=== PATIENT | female | born 1955 | race Caucasian/White ===

== ENCOUNTER 2025-07-15 11:40 | Inpatient (IN) ==
[2025-07-15] MEDS ORDERED: IOPAMIDOL 100 ML BOTTLE IV ONE (11:41)
[2025-07-15] MEDS: ONDANSETRON 4 MG/2 ML VIAL IV ONE (12:25)
[2025-07-15 12:26] LABS: Basophils # (Auto) 0.01 K/mcL (0.00-0.30); Basophils % (Auto) 0.1 % (0.0-2.0); Eosinophils # (Auto) 0 K/mcL (0.00-0.70); Eosinophils % (Auto) 0 % (0.0-7.0); Hematocrit 44.2 % (34.1-44.9); Hemoglobin 15.1 g/dL (11.2-15.7); Lymphocytes # (Auto) 1.71 K/mcL (1.50-4.80); Lymphocytes % (Auto) 12.2 % (15.5-49.0); Mean Corpuscular HGB Conc 34.2 g/dL (31.0-36.0); Monocytes # (Auto) 0.81 K/mcL (0.10-0.90); Monocytes % (Auto) 5.8 % (1.0-12.0); Neutrophils % (Auto) 81.6 % (38.0-78.0); Platelet Count 332 K/mcL (140-440); RBC 4.35 M/mcL (3.59-5.38); WBC 14.0 K/mcL (4.5-11.0)
[2025-07-15 12:53] LABS: ALT/SGPT 10 U/L (<40); AST/SGOT 13 U/L (<32); Albumin 4.1 gm/dL (3.2-5.2); Albumin/Globulin Ratio 1.0 (1.0-2.3); Alkaline Phosphatase 51 U/L (39-117); Anion Gap 17.0 (8.0-16.0); Bilirubin,Total 1.2 mg/dL (0.1-1.0); Blood Urea Nitrogen 31 mg/dL (8-23); Calcium 12.1 mg/dL (8.6-10.4); Carbon Dioxide 26 mmol/L (22-30); Chloride 89 mmol/L (96-108); Globulin 4.3 gm/dL (2.2-3.7); Glucose 149 mg/dL (70-105); Potassium 3.4 mmol/L (3.3-5.1); Sodium 132 mmol/L (133-145)
[2025-07-15] MEDS: 0.9 % SODIUM CHLORIDE 1,000 ML IV ONE (13:32)
[2025-07-15] MEDS: PIPERACILLIN SODIUM/TAZOBACTAM 3.375 GM in DEXTROSE 5% IN WATER 50 ML IV ONE (14:42)
[2025-07-15] MEDS: ACETAMINOPHEN 1,000 MG/100 ML BAG IV SCH (16:41)
[2025-07-15] MEDS: HYDROmorphone 0.5 MG/0.5 ML SYRINGE IV PRN (18:03)
[2025-07-15] MEDS: METOCLOPRAMIDE 10 MG/2 ML VIAL IV SCH (18:04)
[2025-07-15] MEDS: 0.9 % SODIUM CHLORIDE 1,000 ML IV SCH (20:12)
[2025-07-15] MEDS: 0.9 % SODIUM CHLORIDE 500 ML IV ONE (20:15)
[2025-07-17] MEDS: ONDANSETRON 4 MG/2 ML VIAL IV PRN (14:09)
[2025-07-18 08:23] LABS: ALT/SGPT 13 U/L (<40); AST/SGOT 17 U/L (<32); Albumin 3.1 gm/dL (3.2-5.2); Albumin/Globulin Ratio 1.0 (1.0-2.3); Alkaline Phosphatase 70 U/L (39-117); Anion Gap 15.0 (8.0-16.0); Bilirubin,Direct 0.7 mg/dL (<0.3); Bilirubin,Total 0.9 mg/dL (0.1-1.0); Blood Urea Nitrogen 12 mg/dL (8-23); Calcium 8.8 mg/dL (8.6-10.4); Carbon Dioxide 21 mmol/L (22-30); Chloride 99 mmol/L (96-108); Globulin 3.2 gm/dL (2.2-3.7); Glucose 88 mg/dL (70-105); Phosphorous 1.7 mg/dL (2.5-4.5); Potassium 2.9 mmol/L (3.3-5.1); Sodium 135 mmol/L (133-145); Triglycerides 144 mg/dL (<150); Uric Acid 7.7 mg/dL (2.5-8.0)
[2025-07-18] MEDS: PIPERACILLIN SODIUM/TAZOBACTAM 4.5 GM in DEXTROSE 5% IN WATER 50 ML IV ONE (09:02)
[2025-07-18] MEDS: PANTOPRAZOLE 40 MG VIAL IV SCH (09:04)
[2025-07-18 09:13] LABS: Basophils # (Auto) 0.03 K/mcL (0.00-0.30); Basophils % (Auto) 0.2 % (0.0-2.0); Eosinophils # (Auto) 0.05 K/mcL (0.00-0.70); Eosinophils % (Auto) 0.3 % (0.0-7.0); Hematocrit 34.3 % (34.1-44.9); Hemoglobin 11.6 g/dL (11.2-15.7); Lymphocytes # (Auto) 1.41 K/mcL (1.50-4.80); Lymphocytes % (Auto) 9.0 % (15.5-49.0); Mean Corpuscular HGB Conc 33.8 g/dL (31.0-36.0); Monocytes # (Auto) 1.10 K/mcL (0.10-0.90); Monocytes % (Auto) 7.0 % (1.0-12.0); Neutrophils % (Auto) 81.8 % (38.0-78.0); Platelet Count 336 K/mcL (140-440); RBC 3.37 M/mcL (3.59-5.38); WBC 15.8 K/mcL (4.5-11.0)
[2025-07-18] MEDS: POTASSIUM PHOSPHATE IV ONE (09:41)
[2025-07-18] MEDS: DEXTROSE 5% IV ONE (09:41)
[2025-07-18] MEDS: WATER IV ONE (09:41)
[2025-07-18] MEDS: PIPERACILLIN SODIUM/TAZOBACTAM 4.5 GM in DEXTROSE 5% IN WATER 100 ML IV SCH (12:52)
[2025-07-18] MEDS: POLYETHYLENE GLYCOL 3350 17 GM PACKET PO SCH (15:34)
[2025-07-18] MEDS: PYRIDOSTIGMINE BROMIDE 10 MG/2 ML AMPUL IV SCH (15:34)
[2025-07-18] MEDS: MAGNESIUM SULFATE 4 GM/100 ML BAG IV ONE (16:26)
[2025-07-18 18:32] LABS: INR 1.1 (0.9-1.1); Prothrombin Time 15.0 sec (11.9-14.5)
[2025-07-19 06:39] LABS: Basophils # (Auto) 0.02 K/mcL (0.00-0.30); Basophils % (Auto) 0.1 % (0.0-2.0); Eosinophils # (Auto) 0.10 K/mcL (0.00-0.70); Eosinophils % (Auto) 0.7 % (0.0-7.0); Hematocrit 32.7 % (34.1-44.9); Hemoglobin 11.2 g/dL (11.2-15.7); Lymphocytes # (Auto) 1.46 K/mcL (1.50-4.80); Lymphocytes % (Auto) 9.7 % (15.5-49.0); Mean Corpuscular HGB Conc 34.3 g/dL (31.0-36.0); Monocytes # (Auto) 1.02 K/mcL (0.10-0.90); Monocytes % (Auto) 6.8 % (1.0-12.0); Neutrophils % (Auto) 78.8 % (38.0-78.0); Platelet Count 378 K/mcL (140-440); RBC 3.25 M/mcL (3.59-5.38); WBC 15.0 K/mcL (4.5-11.0)
[2025-07-19 07:17] LABS: ALT/SGPT 13 U/L (<40); AST/SGOT 16 U/L (<32); Albumin 3.0 gm/dL (3.2-5.2); Albumin/Globulin Ratio 1.0 (1.0-2.3); Alkaline Phosphatase 76 U/L (39-117); Anion Gap 13.0 (8.0-16.0); Bilirubin,Direct 0.6 mg/dL (<0.3); Bilirubin,Total 0.9 mg/dL (0.1-1.0); Blood Urea Nitrogen 8 mg/dL (8-23); Calcium 8.4 mg/dL (8.6-10.4); Carbon Dioxide 22 mmol/L (22-30); Chloride 99 mmol/L (96-108); Globulin 3.1 gm/dL (2.2-3.7); Glucose 100 mg/dL (70-105); Phosphorous 1.9 mg/dL (2.5-4.5); Potassium 3.0 mmol/L (3.3-5.1); Sodium 134 mmol/L (133-145); Triglycerides 128 mg/dL (<150); Uric Acid 3.8 mg/dL (2.5-8.0)
[2025-07-19 13:52] LABS: ALT/SGPT 10 U/L (<40); AST/SGOT 15 U/L (<32); Albumin 3.2 gm/dL (3.2-5.2); Albumin/Globulin Ratio 0.9 (1.0-2.3); Alkaline Phosphatase 53 U/L (39-117); Anion Gap 16.1 (8.0-16.0); Bilirubin,Direct 0.4 mg/dL (<0.3); Bilirubin,Total 0.6 mg/dL (0.1-1.0); Blood Urea Nitrogen 22 mg/dL (8-23); Calcium 9.3 mg/dL (8.6-10.4); Carbon Dioxide 21 mmol/L (22-30); Chloride 95 mmol/L (96-108); Globulin 3.5 gm/dL (2.2-3.7); Glucose 97 mg/dL (70-105); Phosphorous 1.4 mg/dL (2.5-4.5); Potassium 3.1 mmol/L (3.3-5.1); Sodium 132 mmol/L (133-145); Triglycerides 184 mg/dL (<150); Uric Acid 7.4 mg/dL (2.5-8.0)
[2025-07-19] MEDS: 0.9 % SODIUM CHLORIDE 1,000 ML IV SCH (16:28)
[2025-07-19] MEDS: POTASSIUM PHOSPHATE 40 MEQ in DEXTROSE 5% IN WATER 500 ML IV SCH (16:45)
[2025-07-20 07:39] LABS: ALT/SGPT 14 U/L (<40); AST/SGOT 18 U/L (<32); Albumin 3.4 gm/dL (3.2-5.2); Albumin/Globulin Ratio 0.9 (1.0-2.3); Alkaline Phosphatase 90 U/L (39-117); Anion Gap 14.0 (8.0-16.0); Bilirubin,Direct 0.7 mg/dL (<0.3); Bilirubin,Total 1.1 mg/dL (0.1-1.0); Blood Urea Nitrogen 6 mg/dL (8-23); Calcium 8.9 mg/dL (8.6-10.4); Carbon Dioxide 24 mmol/L (22-30); Chloride 98 mmol/L (96-108); Globulin 3.6 gm/dL (2.2-3.7); Glucose 126 mg/dL (70-105); Phosphorous 2.7 mg/dL (2.5-4.5); Potassium 3.4 mmol/L (3.3-5.1); Sodium 136 mmol/L (133-145); Triglycerides 135 mg/dL (<150); Uric Acid 3.0 mg/dL (2.5-8.0)
[2025-07-20 08:24] LABS: Basophils # (Auto) 0.03 K/mcL (0.00-0.30); Basophils % (Auto) 0.2 % (0.0-2.0); Eosinophils # (Auto) 0.06 K/mcL (0.00-0.70); Eosinophils % (Auto) 0.3 % (0.0-7.0); Hematocrit 38.0 % (34.1-44.9); Hemoglobin 13.1 g/dL (11.2-15.7); Lymphocytes # (Auto) 1.72 K/mcL (1.50-4.80); Lymphocytes % (Auto) 9.7 % (15.5-49.0); Mean Corpuscular HGB Conc 34.5 g/dL (31.0-36.0); Monocytes # (Auto) 1.11 K/mcL (0.10-0.90); Monocytes % (Auto) 6.3 % (1.0-12.0); Neutrophils % (Auto) 79.3 % (38.0-78.0); Platelet Count 454 K/mcL (140-440); RBC 3.78 M/mcL (3.59-5.38); WBC 17.7 K/mcL (4.5-11.0)
[2025-07-21 06:57] LABS: Basophils # (Auto) 0.02 K/mcL (0.00-0.30); Basophils % (Auto) 0.2 % (0.0-2.0); Eosinophils # (Auto) 0.13 K/mcL (0.00-0.70); Eosinophils % (Auto) 1.0 % (0.0-7.0); Hematocrit 33.4 % (34.1-44.9); Hemoglobin 11.4 g/dL (11.2-15.7); Lymphocytes # (Auto) 1.63 K/mcL (1.50-4.80); Lymphocytes % (Auto) 13.2 % (15.5-49.0); Mean Corpuscular HGB Conc 34.1 g/dL (31.0-36.0); Monocytes # (Auto) 0.81 K/mcL (0.10-0.90); Monocytes % (Auto) 6.5 % (1.0-12.0); Neutrophils % (Auto) 74.0 % (38.0-78.0); Platelet Count 464 K/mcL (140-440); RBC 3.28 M/mcL (3.59-5.38); WBC 12.4 K/mcL (4.5-11.0)
[2025-07-21 07:36] LABS: ALT/SGPT 10 U/L (<40); AST/SGOT 15 U/L (<32); Albumin 3.0 gm/dL (3.2-5.2); Albumin/Globulin Ratio 0.9 (1.0-2.3); Alkaline Phosphatase 81 U/L (39-117); Anion Gap 17.0 (8.0-16.0); Bilirubin,Direct 0.4 mg/dL (<0.3); Bilirubin,Total 0.8 mg/dL (0.1-1.0); Blood Urea Nitrogen 7 mg/dL (8-23); Calcium 8.6 mg/dL (8.6-10.4); Carbon Dioxide 21 mmol/L (22-30); Chloride 99 mmol/L (96-108); Globulin 3.3 gm/dL (2.2-3.7); Glucose 93 mg/dL (70-105); Phosphorous 2.4 mg/dL (2.5-4.5); Potassium 3.0 mmol/L (3.3-5.1); Sodium 137 mmol/L (133-145); Triglycerides 114 mg/dL (<150); Uric Acid 3.2 mg/dL (2.5-8.0)
[2025-07-21] MEDS ORDERED: IOPAMIDOL 100 ML BOTTLE IV ONE (09:37)
[2025-07-21 10:51] LABS: Basophils # (Auto) 0.01 K/mcL (0.00-0.30); Basophils % (Auto) 0.1 % (0.0-2.0); Eosinophils # (Auto) 0.09 K/mcL (0.00-0.70); Eosinophils % (Auto) 0.8 % (0.0-7.0); Hematocrit 36.2 % (34.1-44.9); Hemoglobin 12.0 g/dL (11.2-15.7); Lymphocytes # (Auto) 1.22 K/mcL (1.50-4.80); Lymphocytes % (Auto) 10.5 % (15.5-49.0); Mean Corpuscular HGB Conc 33.1 g/dL (31.0-36.0); Monocytes # (Auto) 0.98 K/mcL (0.10-0.90); Monocytes % (Auto) 8.4 % (1.0-12.0); Neutrophils % (Auto) 79.2 % (38.0-78.0); Platelet Count 315 K/mcL (140-440); RBC 3.45 M/mcL (3.59-5.38); WBC 11.6 K/mcL (4.5-11.0)
[2025-07-21 11:04] LABS: Bacteria,Urine Few /hpf (0); Bilirubin,Urine Negative (Negative); Color,Urine Yellow; Glucose,Urine (UA) Negative (Negative); Ketones,Urine 15(1+) mg/dL (Negative); Leukocyte Esterase,Urine Negative /uL (Negative); PH,Urine 5.0 (5.0-9.0); Protein,Urine 100 mg/dL (Negative); Specific Gravity,Urine 1.020 (1.000-1.035); Urobilinogen,Urine 2.0 mg/dL
[2025-07-21 11:18] LABS: ALT/SGPT 9 U/L (<40); AST/SGOT 12 U/L (<32); Albumin 3.5 gm/dL (3.2-5.2); Albumin/Globulin Ratio 0.6 (1.0-2.3); Alkaline Phosphatase 43 U/L (39-117); Anion Gap 16.5 (8.0-16.0); Bilirubin,Direct 0.5 mg/dL (<0.3); Bilirubin,Total 0.8 mg/dL (0.1-1.0); Blood Urea Nitrogen 35 mg/dL (8-23); Calcium 10.5 mg/dL (8.6-10.4); Carbon Dioxide 25 mmol/L (22-30); Chloride 96 mmol/L (96-108); Globulin 5.6 gm/dL (2.2-3.7); Glucose 103 mg/dL (70-105); Phosphorous 2.8 mg/dL (2.5-4.5); Potassium 3.5 mmol/L (3.3-5.1); Sodium 137 mmol/L (133-145); Triglycerides 152 mg/dL (<150); Uric Acid 7.3 mg/dL (2.5-8.0)
[2025-07-21] MEDS: POTASSIUM PHOSPHATE 40 MEQ in DEXTROSE 5% IN WATER 500 ML IV SCH (12:57)
[2025-07-21 17:44] LABS: Basophils # (Auto) 0.02 K/mcL (0.00-0.30); Basophils % (Auto) 0.2 % (0.0-2.0); Eosinophils # (Auto) 0.04 K/mcL (0.00-0.70); Eosinophils % (Auto) 0.4 % (0.0-7.0); Hematocrit 39.4 % (34.1-44.9); Hemoglobin 13.2 g/dL (11.2-15.7); Lymphocytes # (Auto) 1.13 K/mcL (1.50-4.80); Lymphocytes % (Auto) 10.9 % (15.5-49.0); Mean Corpuscular HGB Conc 33.5 g/dL (31.0-36.0); Monocytes # (Auto) 0.89 K/mcL (0.10-0.90); Monocytes % (Auto) 8.6 % (1.0-12.0); Neutrophils % (Auto) 79.6 % (38.0-78.0); Platelet Count 319 K/mcL (140-440); RBC 3.79 M/mcL (3.59-5.38); WBC 10.4 K/mcL (4.5-11.0)
[2025-07-22 06:42] LABS: Basophils # (Auto) 0.02 K/mcL (0.00-0.30); Basophils % (Auto) 0.2 % (0.0-2.0); Eosinophils # (Auto) 0.21 K/mcL (0.00-0.70); Eosinophils % (Auto) 1.7 % (0.0-7.0); Hematocrit 34.3 % (34.1-44.9); Hemoglobin 11.4 g/dL (11.2-15.7); Lymphocytes # (Auto) 1.77 K/mcL (1.50-4.80); Lymphocytes % (Auto) 14.3 % (15.5-49.0); Mean Corpuscular HGB Conc 33.2 g/dL (31.0-36.0); Monocytes # (Auto) 0.84 K/mcL (0.10-0.90); Monocytes % (Auto) 6.8 % (1.0-12.0); Neutrophils % (Auto) 73.5 % (38.0-78.0); Platelet Count 494 K/mcL (140-440); RBC 3.33 M/mcL (3.59-5.38); WBC 12.4 K/mcL (4.5-11.0)
[2025-07-22 06:56] LABS: ALT/SGPT 10 U/L (<40); AST/SGOT 14 U/L (<32); Albumin 3.0 gm/dL (3.2-5.2); Albumin/Globulin Ratio 0.9 (1.0-2.3); Alkaline Phosphatase 92 U/L (39-117); Anion Gap 15.0 (8.0-16.0); Bilirubin,Direct 0.3 mg/dL (<0.3); Bilirubin,Total 0.6 mg/dL (0.1-1.0); Blood Urea Nitrogen 6 mg/dL (8-23); Calcium 8.4 mg/dL (8.6-10.4); Carbon Dioxide 22 mmol/L (22-30); Chloride 101 mmol/L (96-108); Globulin 3.4 gm/dL (2.2-3.7); Glucose 183 mg/dL (70-105); Phosphorous 2.3 mg/dL (2.5-4.5); Potassium 3.2 mmol/L (3.3-5.1); Sodium 138 mmol/L (133-145); Triglycerides 104 mg/dL (<150); Uric Acid 3.4 mg/dL (2.5-8.0)
[2025-07-22] MEDS ORDERED: BUPIVACAINE LIPOSOMAL 1.3% 10 ML VIAL IJ ONE (09:06)
[2025-07-22] MEDS ORDERED: fentaNYL 100 MCG/2 ML VIAL ONE (09:59)
[2025-07-22] MEDS ORDERED: PROPOFOL 200 MG/20 ML VIAL IV ONE (09:59)
[2025-07-22] MEDS ORDERED: LIDOCAINE 2% PF 5 ML VIAL ONE (10:03)
[2025-07-22] MEDS ORDERED: DEXAMETHASONE 10 MG/ML VIAL ONE (10:03)
[2025-07-22] MEDS ORDERED: GLYCOPYRROLATE 0.2 MG/ML VIAL IV ONE (10:03)
[2025-07-22] MEDS ORDERED: ONDANSETRON 4 MG/2 ML VIAL ONE (10:03)
[2025-07-22] MEDS ORDERED: ROCURONIUM 10 MG/ML ML IV ONE ×2 (10:03→16:22)
[2025-07-22] MEDS ORDERED: MAGNESIUM SULFATE 2 GM/50 ML BAG IV ONE (10:09)
[2025-07-22] MEDS ORDERED: PHENYLephrine 1 MG/10 ML SYRINGE (ANEST) ONE (14:54)
[2025-07-22] MEDS ORDERED: HYDROmorphone 0.5 MG/0.5 ML SYRINGE ONE ×2 (15:12→16:54)
[2025-07-22] MEDS ORDERED: SUGAMMADEX SODIUM 200 MG/2 ML VIAL IV ONE (15:12)
[2025-07-22] MEDS ORDERED: IPRATROPIUM/ALBUTEROL 3 ML AMPUL.NEB NEB PRN (16:12)
[2025-07-22] MEDS ORDERED: ONDANSETRON 4 MG/2 ML VIAL IV PRN (16:12)
[2025-07-22] MEDS ORDERED: BENZOCAINE/MENTHOL 1 LOZENGE PO PRN (16:12)
[2025-07-22] MEDS ORDERED: LACTATED RINGERS 250 ML IV PRN (16:12)
[2025-07-22] MEDS ORDERED: NALOXONE HCL 0.4 MG/ML VIAL IV PRN (16:12)
[2025-07-22] MEDS ORDERED: VASOPRESSIN 20 UNIT/ML VIAL ONE (16:22)
[2025-07-22] MEDS: HYDROmorphone 0.5 MG/0.5 ML SYRINGE IV PRN (17:23)
[2025-07-22] MEDS: fentaNYL 100 MCG/2 ML VIAL IV PRN (17:37)
[2025-07-22] MEDS: METHOCARBAMOL 1,000 MG/10 ML VIAL IV PRN (17:38)
[2025-07-22] MEDS: ACETAMINOPHEN 1,000 MG/100 ML BAG IV ONE (17:55)
[2025-07-22] MEDS: LACTATED RINGERS 1,000 ML IV SCH (18:45)
[2025-07-22] MEDS: POTASSIUM PHOSPHATE 66 MEQ/15 ML VIAL IV ONE (19:46)
[2025-07-22] MEDS: POTASSIUM PHOSPHATE 40 MEQ in DEXTROSE 5% IN WATER 500 ML IV SCH (19:56)
[2025-07-23] MEDS: KETOROLAC 15 MG/ML VIAL IV SCH
[2025-07-23] MEDS: POTASSIUM PHOSPHATE 66 MEQ/15 ML VIAL IV ONE (00:01)
[2025-07-23 06:20] LABS: Basophils # (Auto) 0.01 K/mcL (0.00-0.30); Basophils % (Auto) 0 % (0.0-2.0); Eosinophils # (Auto) 0 K/mcL (0.00-0.70); Eosinophils % (Auto) 0 % (0.0-7.0); Hematocrit 35.6 % (34.1-44.9); Hemoglobin 11.9 g/dL (11.2-15.7); Lymphocytes # (Auto) 1.80 K/mcL (1.50-4.80); Lymphocytes % (Auto) 8.2 % (15.5-49.0); Mean Corpuscular HGB Conc 33.4 g/dL (31.0-36.0); Monocytes # (Auto) 1.00 K/mcL (0.10-0.90); Monocytes % (Auto) 4.6 % (1.0-12.0); Neutrophils % (Auto) 86.0 % (38.0-78.0); Platelet Count 516 K/mcL (140-440); RBC 3.45 M/mcL (3.59-5.38); WBC 22.0 K/mcL (4.5-11.0)
[2025-07-23 06:39] LABS: ALT/SGPT 12 U/L (<40); AST/SGOT 19 U/L (<32); Albumin 2.9 gm/dL (3.2-5.2); Albumin/Globulin Ratio 1.0 (1.0-2.3); Alkaline Phosphatase 80 U/L (39-117); Anion Gap 9.0 (8.0-16.0); Bilirubin,Direct 0.2 mg/dL (<0.3); Bilirubin,Total 0.6 mg/dL (0.1-1.0); Blood Urea Nitrogen 9 mg/dL (8-23); Calcium 7.9 mg/dL (8.6-10.4); Carbon Dioxide 22 mmol/L (22-30); Chloride 101 mmol/L (96-108); Globulin 3.0 gm/dL (2.2-3.7); Glucose 180 mg/dL (70-105); Phosphorous 3.5 mg/dL (2.5-4.5); Potassium 5.0 mmol/L (3.3-5.1); Sodium 132 mmol/L (133-145); Triglycerides 93 mg/dL (<150); Uric Acid 3.9 mg/dL (2.5-8.0)
[2025-07-23] MEDS: TRANEXAMIC ACID 1,000 MG/10 ML VIAL IV SCH ×2 (15:34→15:45)
[2025-07-23] MEDS: 0.9 % SODIUM CHLORIDE 1,000 ML IV SCH ×2 (15:38→22:19)
[2025-07-23 15:56] LABS: Hematocrit 30.3 % (34.1-44.9); Hemoglobin 10.2 g/dL (11.2-15.7)
[2025-07-23] MEDS ORDERED: IOPAMIDOL 100 ML BOTTLE IV ONE (16:22)
[2025-07-23] MEDS ORDERED: PROPOFOL 200 MG/20 ML VIAL IV ONE (17:18)
[2025-07-23] MEDS ORDERED: fentaNYL 100 MCG/2 ML VIAL ONE (17:18)
[2025-07-23] MEDS ORDERED: NALOXONE HCL 0.4 MG/ML VIAL IV PRN ×2 (17:19→21:01)
[2025-07-23] MEDS ORDERED: ePHEDrine 50 MG/5 ML SYRINGE (ANEST) IV ONE (17:20)
[2025-07-23] MEDS ORDERED: PHENYLephrine 1 MG/10 ML SYRINGE (ANEST) ONE ×2 (17:20→19:11)
[2025-07-23] MEDS ORDERED: FAMOTIDINE/PF 20 MG/2 ML VIAL IV ONE (17:20)
[2025-07-23] MEDS ORDERED: VASOPRESSIN 20 UNIT/ML VIAL ONE (17:20)
[2025-07-23] MEDS: NOREPINEPHRINE 250 ML IV SCH (17:28)
[2025-07-23 17:35] LABS: Hematocrit 25.0 % (34.1-44.9); Hemoglobin 8.0 g/dL (11.2-15.7)
[2025-07-23] MEDS ORDERED: ROCURONIUM 10 MG/ML ML IV ONE ×4 (18:38→19:21)
[2025-07-23] MEDS ORDERED: PHENYLEPHRINE 10 MG/ML VIAL ONE (18:38)
[2025-07-23] MEDS ORDERED: MAGNESIUM SULFATE 2 GM/50 ML BAG IV ONE (20:04)
[2025-07-23] MEDS ORDERED: ONDANSETRON 4 MG/2 ML VIAL ONE (20:21)
[2025-07-23] MEDS ORDERED: DEXAMETHASONE 10 MG/ML VIAL ONE (20:21)
[2025-07-23] MEDS ORDERED: BUPIVACAINE LIPOSOMAL 1.3% 10 ML VIAL IJ ONE ×2 (20:44→20:45)
[2025-07-23] MEDS ORDERED: SUGAMMADEX SODIUM 200 MG/2 ML VIAL IV ONE ×2 (20:49)
[2025-07-23] MEDS ORDERED: BENZOCAINE/MENTHOL 1 LOZENGE PO PRN (21:01)
[2025-07-23] MEDS ORDERED: fentaNYL 100 MCG/2 ML VIAL IV PRN (21:01)
[2025-07-23] MEDS ORDERED: LACTATED RINGERS 250 ML IV PRN (21:01)
[2025-07-23] MEDS ORDERED: ONDANSETRON 4 MG/2 ML VIAL IV PRN (21:01)
[2025-07-23] MEDS ORDERED: IPRATROPIUM/ALBUTEROL 3 ML AMPUL.NEB NEB PRN (21:01)
[2025-07-23] MEDS ORDERED: HYDROmorphone 0.5 MG/0.5 ML SYRINGE ONE (21:01)
[2025-07-23] MEDS: ACETAMINOPHEN 1,000 MG/100 ML BAG IV ONE (21:30)
[2025-07-23] MEDS: METHOCARBAMOL 1,000 MG/10 ML VIAL IV PRN (21:36)
[2025-07-23] MEDS: HYDROmorphone 0.5 MG/0.5 ML SYRINGE IV PRN (21:41)
[2025-07-23] MEDS: KETOROLAC 30 MG/ML VIAL IV ONE (21:43)
[2025-07-23] MEDS: 0.9 % SODIUM CHLORIDE 250 ML IV SCH ×5 (22:04→22:06)
[2025-07-23] MEDS: LACTATED RINGERS 1,000 ML IV SCH (22:06)
[2025-07-23] MEDS: KETOROLAC 30 MG/ML VIAL ONE (22:08)
[2025-07-23] MEDS: METHOCARBAMOL 1,000 MG/10 ML VIAL ONE (22:10)
[2025-07-23] MEDS: HYDROmorphone 0.5 MG/0.5 ML SYRINGE ONE (22:10)
[2025-07-23] MEDS: 0.9 % SODIUM CHLORIDE 500 ML IV ONE (22:11)
[2025-07-23] MEDS: KETOROLAC 30 MG/ML VIAL IV PRN (23:57)
[2025-07-23] MEDS: METHOCARBAMOL 1,000 MG/10 ML VIAL IV SCH (23:58)
[2025-07-24] MEDS: METHOCARBAMOL 1,000 MG/10 ML VIAL ONE (01:27)
[2025-07-24 02:01] LABS: Hematocrit 34.7 % (34.1-44.9); Hemoglobin 11.8 g/dL (11.2-15.7)
[2025-07-24 05:36] LABS: Basophils # (Auto) 0.02 K/mcL (0.00-0.30); Basophils % (Auto) 0.1 % (0.0-2.0); Eosinophils # (Auto) 0 K/mcL (0.00-0.70); Eosinophils % (Auto) 0 % (0.0-7.0); Hematocrit 31.3 % (34.1-44.9); Hemoglobin 10.7 g/dL (11.2-15.7); Lymphocytes # (Auto) 1.67 K/mcL (1.50-4.80); Lymphocytes % (Auto) 6.7 % (15.5-49.0); Mean Corpuscular HGB Conc 34.2 g/dL (31.0-36.0); Monocytes # (Auto) 0.83 K/mcL (0.10-0.90); Monocytes % (Auto) 3.3 % (1.0-12.0); Neutrophils % (Auto) 88.8 % (38.0-78.0); Platelet Count 324 K/mcL (140-440); RBC 3.34 M/mcL (3.59-5.38); WBC 25.0 K/mcL (4.5-11.0)
[2025-07-24 05:57] LABS: ALT/SGPT 20 U/L (<40); AST/SGOT 29 U/L (<32); Albumin 2.8 gm/dL (3.2-5.2); Albumin/Globulin Ratio 1.2 (1.0-2.3); Alkaline Phosphatase 53 U/L (39-117); Anion Gap 10.0 (8.0-16.0); Bilirubin,Direct 0.5 mg/dL (<0.3); Bilirubin,Total 0.7 mg/dL (0.1-1.0); Blood Urea Nitrogen 16 mg/dL (8-23); Calcium 7.5 mg/dL (8.6-10.4); Carbon Dioxide 22 mmol/L (22-30); Chloride 105 mmol/L (96-108); Globulin 2.4 gm/dL (2.2-3.7); Glucose 157 mg/dL (70-105); Phosphorous 3.7 mg/dL (2.5-4.5); Potassium 4.6 mmol/L (3.3-5.1); Sodium 137 mmol/L (133-145); Triglycerides 105 mg/dL (<150); Uric Acid 5.0 mg/dL (2.5-8.0)
[2025-07-24 11:50] LABS: Basophils # (Auto) 0.03 K/mcL (0.00-0.30); Basophils % (Auto) 0.1 % (0.0-2.0); Eosinophils # (Auto) 0 K/mcL (0.00-0.70); Eosinophils % (Auto) 0 % (0.0-7.0); Hematocrit 31.4 % (34.1-44.9); Hemoglobin 10.6 g/dL (11.2-15.7); Lymphocytes # (Auto) 1.70 K/mcL (1.50-4.80); Lymphocytes % (Auto) 7.3 % (15.5-49.0); Mean Corpuscular HGB Conc 33.8 g/dL (31.0-36.0); Monocytes # (Auto) 1.11 K/mcL (0.10-0.90); Monocytes % (Auto) 4.7 % (1.0-12.0); Neutrophils % (Auto) 86.7 % (38.0-78.0); Platelet Count 338 K/mcL (140-440); RBC 3.34 M/mcL (3.59-5.38); WBC 23.4 K/mcL (4.5-11.0)
[2025-07-25 06:34] LABS: Basophils # (Auto) 0.02 K/mcL (0.00-0.30); Basophils % (Auto) 0.1 % (0.0-2.0); Eosinophils # (Auto) 0 K/mcL (0.00-0.70); Eosinophils % (Auto) 0 % (0.0-7.0); Hematocrit 25.3 % (34.1-44.9); Hemoglobin 8.4 g/dL (11.2-15.7); Lymphocytes # (Auto) 2.53 K/mcL (1.50-4.80); Lymphocytes % (Auto) 10.1 % (15.5-49.0); Mean Corpuscular HGB Conc 33.2 g/dL (31.0-36.0); Monocytes # (Auto) 1.33 K/mcL (0.10-0.90); Monocytes % (Auto) 5.3 % (1.0-12.0); Neutrophils % (Auto) 83.5 % (38.0-78.0); Platelet Count 328 K/mcL (140-440); RBC 2.56 M/mcL (3.59-5.38); WBC 25.0 K/mcL (4.5-11.0)
[2025-07-25 06:38] LABS: ALT/SGPT 15 U/L (<40); AST/SGOT 25 U/L (<32); Albumin 2.7 gm/dL (3.2-5.2); Albumin/Globulin Ratio 1.1 (1.0-2.3); Alkaline Phosphatase 47 U/L (39-117); Anion Gap 6.0 (8.0-16.0); Bilirubin,Direct 0.3 mg/dL (<0.3); Bilirubin,Total 0.5 mg/dL (0.1-1.0); Blood Urea Nitrogen 19 mg/dL (8-23); Calcium 7.5 mg/dL (8.6-10.4); Carbon Dioxide 23 mmol/L (22-30); Chloride 108 mmol/L (96-108); Globulin 2.5 gm/dL (2.2-3.7); Glucose 105 mg/dL (70-105); Phosphorous 1.3 mg/dL (2.5-4.5); Potassium 3.9 mmol/L (3.3-5.1); Sodium 137 mmol/L (133-145); Triglycerides 135 mg/dL (<150); Uric Acid 4.1 mg/dL (2.5-8.0)
[2025-07-25] MEDS: WATER IV ONE (11:25)
[2025-07-25] MEDS: SODIUM PHOSPHATE IV ONE (11:25)
[2025-07-25] MEDS: DEXTROSE 5% IV ONE (11:25)
[2025-07-25] MEDS: 0.9 % SODIUM CHLORIDE 250 ML IV SCH (11:31)
[2025-07-25] MEDS: metroNIDAZOLE 500 MG/100 ML BAG IV SCH ×2 (15:34→19:15)
[2025-07-25] MEDS: CIPROFLOXACIN 400 MG/200 ML BAG IV SCH (15:34)
[2025-07-25] MEDS: PYRIDOSTIGMINE BROMIDE 10 MG/2 ML AMPUL IV SCH ×2 (15:38→19:29)
[2025-07-25 18:15] LABS: Hematocrit 26.6 % (34.1-44.9); Hemoglobin 8.7 g/dL (11.2-15.7)
[2025-07-26] MEDS: CIPROFLOXACIN 400 MG/200 ML BAG IV SCH (00:57)
[2025-07-26 05:47] LABS: Basophils # (Auto) 0.02 K/mcL (0.00-0.30); Basophils % (Auto) 0.1 % (0.0-2.0); Eosinophils # (Auto) 0.07 K/mcL (0.00-0.70); Eosinophils % (Auto) 0.3 % (0.0-7.0); Hematocrit 25.7 % (34.1-44.9); Hemoglobin 8.5 g/dL (11.2-15.7); Lymphocytes # (Auto) 2.09 K/mcL (1.50-4.80); Lymphocytes % (Auto) 9.3 % (15.5-49.0); Mean Corpuscular HGB Conc 33.1 g/dL (31.0-36.0); Monocytes # (Auto) 1.14 K/mcL (0.10-0.90); Monocytes % (Auto) 5.1 % (1.0-12.0); Neutrophils % (Auto) 84.3 % (38.0-78.0); Platelet Count 381 K/mcL (140-440); RBC 2.65 M/mcL (3.59-5.38); WBC 22.6 K/mcL (4.5-11.0)
[2025-07-26 13:07] LABS: ALT/SGPT 12 U/L (<40); AST/SGOT 20 U/L (<32); Albumin 2.5 gm/dL (3.2-5.2); Albumin/Globulin Ratio 0.9 (1.0-2.3); Alkaline Phosphatase 58 U/L (39-117); Anion Gap 7.0 (8.0-16.0); Bilirubin,Direct 0.3 mg/dL (<0.3); Bilirubin,Total 0.5 mg/dL (0.1-1.0); Blood Urea Nitrogen 9 mg/dL (8-23); Calcium 7.7 mg/dL (8.6-10.4); Carbon Dioxide 22 mmol/L (22-30); Chloride 106 mmol/L (96-108); Globulin 2.8 gm/dL (2.2-3.7); Glucose 91 mg/dL (70-105); Phosphorous 1.5 mg/dL (2.5-4.5); Potassium 3.5 mmol/L (3.3-5.1); Sodium 135 mmol/L (133-145); Triglycerides 107 mg/dL (<150); Uric Acid 3.2 mg/dL (2.5-8.0)
[2025-07-26] MEDS ORDERED: TPN PER PHARMACY IV SCH (13:30)
[2025-07-26] MEDS: POTASSIUM PHOSPHATE 40 MEQ in DEXTROSE 5% IN WATER 500 ML IV SCH (14:48)
[2025-07-26] MEDS: KETOROLAC 15 MG/ML VIAL IV PRN (17:29)
[2025-07-27] MEDS ORDERED: 0.9 % SODIUM CHLORIDE 250 ML IV SCH (00:45)
[2025-07-27 08:14] LABS: Macrocytosis 1+ (None Seen); RBC Morphology ABNORMAL (Normal)
[2025-07-27 08:16] LABS: Hematocrit 28.0 % (34.1-44.9); Hemoglobin 9.3 g/dL (11.2-15.7); Mean Corpuscular HGB Conc 33.2 g/dL (31.0-36.0); Platelet Count 525 K/mcL (140-440); RBC 2.91 M/mcL (3.59-5.38); WBC 21.6 K/mcL (4.5-11.0)
[2025-07-27 08:20] LABS: ALT/SGPT 13 U/L (<40); AST/SGOT 19 U/L (<32); Albumin 2.6 gm/dL (3.2-5.2); Albumin/Globulin Ratio 0.9 (1.0-2.3); Alkaline Phosphatase 71 U/L (39-117); Anion Gap 9.0 (8.0-16.0); Bilirubin,Direct 0.3 mg/dL (<0.3); Bilirubin,Total 0.5 mg/dL (0.1-1.0); Blood Urea Nitrogen 5 mg/dL (8-23); Calcium 8.1 mg/dL (8.6-10.4); Carbon Dioxide 21 mmol/L (22-30); Chloride 105 mmol/L (96-108); Globulin 3.0 gm/dL (2.2-3.7); Glucose 98 mg/dL (70-105); Phosphorous 2.2 mg/dL (2.5-4.5); Potassium 3.8 mmol/L (3.3-5.1); Sodium 135 mmol/L (133-145); Triglycerides 79 mg/dL (<150); Uric Acid 3.0 mg/dL (2.5-8.0)
[2025-07-27] MEDS ORDERED: NOREPINEPHRINE 250 ML IV PRN (10:48)
[2025-07-27] MEDS ORDERED: ACETAMINOPHEN 1,000 MG/100 ML BAG IV PRN (11:14)
[2025-07-27] MEDS: 0.9 % SODIUM CHLORIDE 1,000 ML IV SCH (11:44)
[2025-07-27] MEDS: MAGNESIUM SULFATE IV SCH (14:11)
[2025-07-27] MEDS: SODIUM CHLORIDE IV SCH (14:11)
[2025-07-27] MEDS: POTASSIUM PHOSPHATE IV SCH (14:11)
[2025-07-27] MEDS: MVI IV SCH (14:11)
[2025-07-27] MEDS: [UNRECOGNIZED DRUG - OTHER] IV SCH (14:11)
[2025-07-27] MEDS: FAT EMULSION 20% 250 ML in PREMIX 1 BAG IV SCH (16:12)
[2025-07-27] MEDS: METHYLNALTREXONE BROMIDE 12 MG/0.6 ML SYRINGE SQ SCH (18:00)
[2025-07-27] MEDS: INSULIN LISPRO 1 UNIT/0.01 ML UNIT SQ SCH (18:03)
[2025-07-28 06:33] LABS: Basophils # (Auto) 0.03 K/mcL (0.00-0.30); Basophils % (Auto) 0.2 % (0.0-2.0); Eosinophils # (Auto) 0.28 K/mcL (0.00-0.70); Eosinophils % (Auto) 1.4 % (0.0-7.0); Hematocrit 26.7 % (34.1-44.9); Hemoglobin 8.7 g/dL (11.2-15.7); Lymphocytes # (Auto) 1.69 K/mcL (1.50-4.80); Lymphocytes % (Auto) 8.6 % (15.5-49.0); Mean Corpuscular HGB Conc 32.6 g/dL (31.0-36.0); Monocytes # (Auto) 1.30 K/mcL (0.10-0.90); Monocytes % (Auto) 6.6 % (1.0-12.0); Neutrophils % (Auto) 82.5 % (38.0-78.0); Platelet Count 547 K/mcL (140-440); RBC 2.70 M/mcL (3.59-5.38); WBC 19.7 K/mcL (4.5-11.0)
[2025-07-28 06:47] LABS: ALT/SGPT 10 U/L (<40); AST/SGOT 14 U/L (<32); Albumin 2.4 gm/dL (3.2-5.2); Albumin/Globulin Ratio 0.8 (1.0-2.3); Alkaline Phosphatase 63 U/L (39-117); Anion Gap 6.0 (8.0-16.0); Bilirubin,Direct 0.2 mg/dL (<0.3); Bilirubin,Total 0.4 mg/dL (0.1-1.0); Blood Urea Nitrogen 5 mg/dL (8-23); Calcium 8.0 mg/dL (8.6-10.4); Carbon Dioxide 24 mmol/L (22-30); Chloride 104 mmol/L (96-108); Globulin 2.9 gm/dL (2.2-3.7); Glucose 157 mg/dL (70-105); Phosphorous 2.7 mg/dL (2.5-4.5); Potassium 3.6 mmol/L (3.3-5.1); Sodium 134 mmol/L (133-145); Triglycerides 70 mg/dL (<150); Uric Acid 2.7 mg/dL (2.5-8.0)
[2025-07-28] MEDS ORDERED: DEXTROSE 50% 50 ML VIAL IV PRN (07:50)
[2025-07-28] MEDS: 0.9 % SODIUM CHLORIDE 1,000 ML IV SCH (13:39)
[2025-07-28] MEDS: POTASSIUM PHOSPHATE IV SCH (14:47)
[2025-07-28] MEDS: SODIUM CHLORIDE IV SCH (14:47)
[2025-07-28] MEDS: MAGNESIUM SULFATE IV SCH (14:47)
[2025-07-28] MEDS: [UNRECOGNIZED DRUG - OTHER] IV SCH (14:47)
[2025-07-28] MEDS: MVI IV SCH (14:47)
[2025-07-28] MEDS: MAGNESIUM SULFATE 4 GM/100 ML BAG IV ONE (16:14)
[2025-07-29 06:50] LABS: ALT/SGPT 8 U/L (<40); AST/SGOT 12 U/L (<32); Albumin 2.4 gm/dL (3.2-5.2); Albumin/Globulin Ratio 0.7 (1.0-2.3); Alkaline Phosphatase 57 U/L (39-117); Anion Gap 8.0 (8.0-16.0); Bilirubin,Direct < 0.2 mg/dL (0-0.3); Bilirubin,Total 0.3 mg/dL (0.1-1.0); Blood Urea Nitrogen 6 mg/dL (8-23); Calcium 7.8 mg/dL (8.6-10.4); Carbon Dioxide 22 mmol/L (22-30); Chloride 105 mmol/L (96-108); Globulin 3.3 gm/dL (2.2-3.7); Glucose 222 mg/dL (70-105); Phosphorous 2.6 mg/dL (2.5-4.5); Potassium 3.7 mmol/L (3.3-5.1); Sodium 135 mmol/L (133-145); Triglycerides 84 mg/dL (<150); Uric Acid 2.0 mg/dL (2.5-8.0)
[2025-07-29] MEDS: MAGNESIUM SULFATE IV SCH (14:06)
[2025-07-29] MEDS: [UNRECOGNIZED DRUG - OTHER] IV SCH (14:06)
[2025-07-29] MEDS: MVI IV SCH (14:06)
[2025-07-29] MEDS: SODIUM CHLORIDE IV SCH (14:06)
[2025-07-29] MEDS: POTASSIUM PHOSPHATE IV SCH (14:06)
[2025-07-29] MEDS: KETOROLAC 15 MG/ML VIAL IV SCH (17:47)
[2025-07-29] MEDS: METHOCARBAMOL 1,000 MG/10 ML VIAL IV SCH (17:47)
[2025-07-29] MEDS: ACETAMINOPHEN 1,000 MG/100 ML BAG IV SCH (19:18)
[2025-07-30 06:18] LABS: Basophils # (Auto) 0.04 K/mcL (0.00-0.30); Basophils % (Auto) 0.2 % (0.0-2.0); Eosinophils # (Auto) 0.36 K/mcL (0.00-0.70); Eosinophils % (Auto) 1.9 % (0.0-7.0); Hematocrit 28.0 % (34.1-44.9); Hemoglobin 9.1 g/dL (11.2-15.7); Lymphocytes # (Auto) 2.41 K/mcL (1.50-4.80); Lymphocytes % (Auto) 12.5 % (15.5-49.0); Mean Corpuscular HGB Conc 32.5 g/dL (31.0-36.0); Monocytes # (Auto) 1.66 K/mcL (0.10-0.90); Monocytes % (Auto) 8.6 % (1.0-12.0); Neutrophils % (Auto) 76.2 % (38.0-78.0); Platelet Count 673 K/mcL (140-440); RBC 2.82 M/mcL (3.59-5.38); WBC 19.2 K/mcL (4.5-11.0)
[2025-07-30 06:35] LABS: ALT/SGPT < 5 U/L (<40); AST/SGOT 23 U/L (<32); Albumin 2.6 gm/dL (3.2-5.2); Albumin/Globulin Ratio 0.7 (1.0-2.3); Alkaline Phosphatase 79 U/L (39-117); Anion Gap 10.0 (8.0-16.0); Bilirubin,Direct < 0.2 mg/dL (0-0.3); Bilirubin,Total 0.3 mg/dL (0.1-1.0); Blood Urea Nitrogen 7 mg/dL (8-23); Calcium 8.3 mg/dL (8.6-10.4); Carbon Dioxide 22 mmol/L (22-30); Chloride 105 mmol/L (96-108); Globulin 3.6 gm/dL (2.2-3.7); Glucose 195 mg/dL (70-105); Phosphorous 3.2 mg/dL (2.5-4.5); Potassium 4.3 mmol/L (3.3-5.1); Sodium 137 mmol/L (133-145); Triglycerides 95 mg/dL (<150); Uric Acid 1.8 mg/dL (2.5-8.0)
[2025-07-30 06:51] LABS: Prealbumin 12.4 mg/dL (20.0-40.0)
[2025-07-30] MEDS: [UNRECOGNIZED DRUG - OTHER] IV SCH (14:46)
[2025-07-30] MEDS: MAGNESIUM SULFATE IV SCH (14:46)
[2025-07-30] MEDS: POTASSIUM PHOSPHATE IV SCH (14:46)
[2025-07-30] MEDS: SODIUM CHLORIDE IV SCH (14:46)
[2025-07-30] MEDS: MVI IV SCH (14:46)
[2025-07-31 05:59] LABS: Basophils # (Auto) 0.06 K/mcL (0.00-0.30); Basophils % (Auto) 0.4 % (0.0-2.0); Eosinophils # (Auto) 0.40 K/mcL (0.00-0.70); Eosinophils % (Auto) 2.4 % (0.0-7.0); Hematocrit 26.0 % (34.1-44.9); Hemoglobin 8.2 g/dL (11.2-15.7); Lymphocytes # (Auto) 1.85 K/mcL (1.50-4.80); Lymphocytes % (Auto) 11.1 % (15.5-49.0); Mean Corpuscular HGB Conc 31.5 g/dL (31.0-36.0); Monocytes # (Auto) 1.63 K/mcL (0.10-0.90); Monocytes % (Auto) 9.8 % (1.0-12.0); Neutrophils % (Auto) 75.8 % (38.0-78.0); Platelet Count 661 K/mcL (140-440); RBC 2.52 M/mcL (3.59-5.38); WBC 16.7 K/mcL (4.5-11.0)
[2025-07-31 06:24] LABS: ALT/SGPT 7 U/L (<40); AST/SGOT 9 U/L (<32); Albumin 2.6 gm/dL (3.2-5.2); Albumin/Globulin Ratio 0.8 (1.0-2.3); Alkaline Phosphatase 62 U/L (39-117); Anion Gap 7.0 (8.0-16.0); Bilirubin,Direct < 0.2 mg/dL (0-0.3); Bilirubin,Total 0.3 mg/dL (0.1-1.0); Blood Urea Nitrogen 9 mg/dL (8-23); Calcium 8.2 mg/dL (8.6-10.4); Carbon Dioxide 22 mmol/L (22-30); Chloride 106 mmol/L (96-108); Globulin 3.4 gm/dL (2.2-3.7); Glucose 242 mg/dL (70-105); Phosphorous 3.4 mg/dL (2.5-4.5); Potassium 4.6 mmol/L (3.3-5.1); Sodium 135 mmol/L (133-145); Triglycerides 87 mg/dL (<150); Uric Acid 1.7 mg/dL (2.5-8.0)
[2025-07-31 06:51] LABS: Prealbumin 12.7 mg/dL (20.0-40.0)
[2025-07-31] MEDS ORDERED: ALTEPLASE 2 MG VIAL IV ONE (10:02)
[2025-07-31] MEDS: ALTEPLASE 2 MG VIAL IV ONE ×3 (10:07→16:15)
[2025-07-31] MEDS: 0.9 % SODIUM CHLORIDE 10 ML SYRINGE IV SCH (10:12)
[2025-07-31] MEDS: SODIUM CHLORIDE IV SCH (14:01)
[2025-07-31] MEDS: [UNRECOGNIZED DRUG - OTHER] IV SCH (14:01)
[2025-07-31] MEDS: MVI IV SCH (14:01)
[2025-07-31] MEDS: POTASSIUM PHOSPHATE IV SCH (14:01)
[2025-07-31] MEDS: MAGNESIUM SULFATE IV SCH (14:01)
[2025-07-31 16:28] LABS: INR 1.1 (0.9-1.1); Prothrombin Time 15.3 sec (11.9-14.5)
[2025-07-31] MEDS: 0.9 % SODIUM CHLORIDE 250 ML IV SCH (17:27)
[2025-08-01 07:28] LABS: Basophils # (Auto) 0.07 K/mcL (0.00-0.30); Basophils % (Auto) 0.4 % (0.0-2.0); Eosinophils # (Auto) 0.38 K/mcL (0.00-0.70); Eosinophils % (Auto) 2.4 % (0.0-7.0); Hematocrit 33.3 % (34.1-44.9); Hemoglobin 11.0 g/dL (11.2-15.7); Lymphocytes # (Auto) 1.91 K/mcL (1.50-4.80); Lymphocytes % (Auto) 12.2 % (15.5-49.0); Mean Corpuscular HGB Conc 33.0 g/dL (31.0-36.0); Monocytes # (Auto) 1.54 K/mcL (0.10-0.90); Monocytes % (Auto) 9.8 % (1.0-12.0); Neutrophils % (Auto) 74.8 % (38.0-78.0); Platelet Count 713 K/mcL (140-440); RBC 3.45 M/mcL (3.59-5.38); WBC 15.6 K/mcL (4.5-11.0)
[2025-08-01 09:14] LABS: ALT/SGPT 8 U/L (<40); AST/SGOT 9 U/L (<32); Albumin 2.7 gm/dL (3.2-5.2); Albumin/Globulin Ratio 0.7 (1.0-2.3); Alkaline Phosphatase 64 U/L (39-117); Anion Gap 9.0 (8.0-16.0); Bilirubin,Direct < 0.2 mg/dL (0-0.3); Bilirubin,Total 0.3 mg/dL (0.1-1.0); Blood Urea Nitrogen 9 mg/dL (8-23); Calcium 8.4 mg/dL (8.6-10.4); Carbon Dioxide 21 mmol/L (22-30); Chloride 105 mmol/L (96-108); Globulin 3.7 gm/dL (2.2-3.7); Glucose 206 mg/dL (70-105); Phosphorous 3.5 mg/dL (2.5-4.5); Potassium 5.0 mmol/L (3.3-5.1); Sodium 135 mmol/L (133-145); Triglycerides 97 mg/dL (<150); Uric Acid 1.7 mg/dL (2.5-8.0)
[2025-08-01] MEDS: MVI IV SCH (14:31)
[2025-08-01] MEDS: POTASSIUM PHOSPHATE IV SCH (14:31)
[2025-08-01] MEDS: [UNRECOGNIZED DRUG - OTHER] IV SCH (14:31)
[2025-08-01] MEDS: SODIUM CHLORIDE IV SCH (14:31)
[2025-08-01] MEDS: MAGNESIUM SULFATE IV SCH (14:31)
[2025-08-02] MEDS: 0.9 % SODIUM CHLORIDE 10 ML SYRINGE IV PRN (00:15)
[2025-08-02 06:13] LABS: ALT/SGPT 6 U/L (<40); AST/SGOT 11 U/L (<32); Albumin 2.7 gm/dL (3.2-5.2); Albumin/Globulin Ratio 0.8 (1.0-2.3); Alkaline Phosphatase 65 U/L (39-117); Anion Gap 7.0 (8.0-16.0); Bilirubin,Direct < 0.2 mg/dL (0-0.3); Bilirubin,Total 0.3 mg/dL (0.1-1.0); Blood Urea Nitrogen 11 mg/dL (8-23); Calcium 8.7 mg/dL (8.6-10.4); Carbon Dioxide 21 mmol/L (22-30); Chloride 103 mmol/L (96-108); Globulin 3.5 gm/dL (2.2-3.7); Glucose 101 mg/dL (70-105); Phosphorous 3.7 mg/dL (2.5-4.5); Potassium 4.8 mmol/L (3.3-5.1); Sodium 131 mmol/L (133-145); Triglycerides 88 mg/dL (<150); Uric Acid 2.2 mg/dL (2.5-8.0)
[2025-08-02 06:16] LABS: Basophils # (Auto) 0.07 K/mcL (0.00-0.30); Basophils % (Auto) 0.5 % (0.0-2.0); Eosinophils # (Auto) 0.30 K/mcL (0.00-0.70); Eosinophils % (Auto) 2.0 % (0.0-7.0); Hematocrit 31.7 % (34.1-44.9); Hemoglobin 10.3 g/dL (11.2-15.7); Lymphocytes # (Auto) 2.07 K/mcL (1.50-4.80); Lymphocytes % (Auto) 14.0 % (15.5-49.0); Mean Corpuscular HGB Conc 32.5 g/dL (31.0-36.0); Monocytes # (Auto) 1.29 K/mcL (0.10-0.90); Monocytes % (Auto) 8.7 % (1.0-12.0); Neutrophils % (Auto) 74.4 % (38.0-78.0); Platelet Count 668 K/mcL (140-440); RBC 3.24 M/mcL (3.59-5.38); WBC 14.8 K/mcL (4.5-11.0)
[2025-08-03 07:34] LABS: ALT/SGPT 5 U/L (<40); AST/SGOT 13 U/L (<32); Albumin 2.6 gm/dL (3.2-5.2); Albumin/Globulin Ratio 0.7 (1.0-2.3); Alkaline Phosphatase 66 U/L (39-117); Anion Gap 6.0 (8.0-16.0); Bilirubin,Direct < 0.2 mg/dL (0-0.3); Bilirubin,Total 0.3 mg/dL (0.1-1.0); Blood Urea Nitrogen 9 mg/dL (8-23); Calcium 8.7 mg/dL (8.6-10.4); Carbon Dioxide 24 mmol/L (22-30); Chloride 103 mmol/L (96-108); Globulin 3.5 gm/dL (2.2-3.7); Glucose 97 mg/dL (70-105); Phosphorous 3.8 mg/dL (2.5-4.5); Potassium 4.5 mmol/L (3.3-5.1); Sodium 133 mmol/L (133-145); Triglycerides 81 mg/dL (<150); Uric Acid 3.2 mg/dL (2.5-8.0)
[2025-08-03] MEDS: FLUCONAZOLE 400 MG/200 ML BAG IV SCH (17:38)
[2025-08-03] MEDS: FLUCONAZOLE 800 MG/400 ML BAG IV SCH (17:44)
[2025-08-03] MEDS: MAGNESIUM SULFATE 4 GM/100 ML BAG IV SCH (18:47)
[2025-08-04 07:14] LABS: Basophils # (Auto) 0.07 K/mcL (0.00-0.30); Basophils % (Auto) 0.6 % (0.0-2.0); Eosinophils # (Auto) 0.36 K/mcL (0.00-0.70); Eosinophils % (Auto) 3.1 % (0.0-7.0); Hematocrit 31.5 % (34.1-44.9); Hemoglobin 10.2 g/dL (11.2-15.7); Lymphocytes # (Auto) 1.96 K/mcL (1.50-4.80); Lymphocytes % (Auto) 17.0 % (15.5-49.0); Mean Corpuscular HGB Conc 32.4 g/dL (31.0-36.0); Monocytes # (Auto) 1.19 K/mcL (0.10-0.90); Monocytes % (Auto) 10.3 % (1.0-12.0); Neutrophils % (Auto) 68.7 % (38.0-78.0); Platelet Count 675 K/mcL (140-440); RBC 3.16 M/mcL (3.59-5.38); WBC 11.6 K/mcL (4.5-11.0)
[2025-08-04 07:21] LABS: ALT/SGPT 8 U/L (<40); AST/SGOT 12 U/L (<32); Albumin 2.8 gm/dL (3.2-5.2); Albumin/Globulin Ratio 0.8 (1.0-2.3); Alkaline Phosphatase 64 U/L (39-117); Anion Gap 8.0 (8.0-16.0); Bilirubin,Direct < 0.2 mg/dL (0-0.3); Bilirubin,Total 0.3 mg/dL (0.1-1.0); Blood Urea Nitrogen 7 mg/dL (8-23); Calcium 8.6 mg/dL (8.6-10.4); Carbon Dioxide 25 mmol/L (22-30); Chloride 103 mmol/L (96-108); Globulin 3.7 gm/dL (2.2-3.7); Glucose 108 mg/dL (70-105); Phosphorous 3.5 mg/dL (2.5-4.5); Potassium 4.1 mmol/L (3.3-5.1); Sodium 136 mmol/L (133-145); Triglycerides 83 mg/dL (<150); Uric Acid 3.7 mg/dL (2.5-8.0)
[2025-08-04] MEDS ORDERED: ACETAMINOPHEN 325 MG TABLET PO PRN (15:44)
[2025-08-04] MEDS: ACETAMINOPHEN 500 MG TABLET PO PRN (16:10)
[2025-08-04] MEDS: FLUCONAZOLE 100 MG TABLET PO SCH (16:10)
[2025-08-04] MEDS: PANTOPRAZOLE 40 MG TABLET PO SCH (17:18)
[2025-08-07] MEDS: ONDANSETRON 4 MG ODT TABLET SL PRN (09:14)
[2025-08-07 10:15] VITALS: TEMP 98.6; O2SAT 99
== END 2025-08-07 10:12 | DRG 329 ==
LOC: MEDSUR 11:40 → ED 11:40 → MEDSUR 16:28 → OBSVTOIN 16:45 → ICU 07-23 21:56 → MEDSUR 08-02 10:40
PROVIDERS: ADMIT Family Medicine Adult Medicine; ATTEND Family Medicine Adult Medicine